=== PATIENT | female | born 1985 | race American Indian/Alaskan Native ===

== ENCOUNTER 2016-09-28 03:08 | Emergency (ER) | payer OTHER ==
[2016-09-28 04:20] LABS: Hematocrit 40.8 % (30.3-42.9); Mean Corpuscular HGB Conc 32 % (30-34); Mean Corpuscular Hemoglobin 28 pg (28-32); Mean Corpuscular Volume 89 fl (79-97); Platelet Count 196 K/mm3 (140-440); Red Blood Count 4.59 M/mm3 (3.65-5.03); Red Cell Distribution Width 13.5 % (13.2-15.2)
[2016-09-28 04:35] LABS: Anion Gap 18 mmol/L; BUN/Creatinine Ratio 11.25; Blood Urea Nitrogen 9 mg/dL (7-17); Calcium 8.9 mg/dL (8.4-10.2); Carbon Dioxide 21 mmol/L (22-30); Chloride 99.7 mmol/L (98-107); Glucose 88 mg/dL (65-100); Potassium 3.6 mmol/L (3.6-5.0); Sodium 135 mmol/L (137-145)
--- NOTE | 2016-09-28 04:50 | Emergency Department Report ---
- General Chief Complaint: Upper Respiratory Infection Stated Complaint: CONGESTED,DIZZY,VOMITING,FEVER,CP Time Seen by Provider: 09/28/16 04:26 Source: patient Mode of arrival: Ambulatory Limitations: No Limitations - History of Present Illness Initial Comments: 30 y/o female present to the Emergency complains of cough cold congestion for last 2 days. Patient said she had a relative visited [place] with similar complaints. Denies any abdominal pain. c/o mild nausea with cough. She has been taking [id number] Robitussin with minimal help. MD Complaint: cough, rhinorrhea, nasal congestion -: Gradual (2) Severity: moderate Severity scale (0 -10): 2 Quality: dull Consistency: constant Improves With: nothing Context: sick contacts Associated Symptoms: cough, nausea Treatments Prior to Arrival: "cold medicine" - Related Data Previous Rx's Medication Instructions Recorded Last Taken Type Acetaminophen/Codeine [Tylenol #3] 1 tab PO Q6H PRN #12 tab 06/24/15 Unknown Rx Azithromycin [Zithromax] 250 mg PO QDAY #4 tablet 06/24/15 Unknown Rx Promethazine Dm [Phenergan Dm 5 ml PO Q6H PRN #120 ml 06/24/15 Unknown Rx 6.25/15 mg 5 ml] Azithromycin [Zithromax Z-VILMA] 0 mg PO DAILY #1 pack 09/28/16 Unknown Rx Oseltamivir [Tamiflu] 75 mg PO BID #10 cap 09/28/16 Unknown Rx predniSONE [Deltasone] 40 mg PO QDAY #10 tab 09/28/16 Unknown Rx Allergies Allergy/AdvReac Type Severity Reaction Status Date / Time No Known Allergies Allergy Unverified 06/23/15 22:06 ED Review of Systems ROS: Stated complaint: CONGESTED,DIZZY,VOMITING,FEVER,CP Other details as noted in HPI Comment: All other systems reviewed and negative Constitutional: denies: chills, fever Eyes: denies: eye pain, eye discharge, vision change ENT: congestion. denies: ear pain, throat pain Respiratory: see HPI, cough. denies: shortness of breath, wheezing Cardiovascular: denies: chest pain, palpitations Endocrine: no symptoms reported Gastrointestinal: denies: abdominal pain, nausea, diarrhea Genitourinary: denies: urgency, dysuria, discharge Musculoskeletal: denies: back pain, joint swelling, arthralgia Skin: denies: rash, lesions Neurological: denies: headache, weakness, paresthesias Psychiatric: denies: anxiety, depression Hematological/Lymphatic: denies: easy bleeding, easy bruising ED Past Medical Hx - Past Medical History Previous Medical History?: Yes Hx Asthma: Yes - Surgical History Past Surgical History?: No - Social History Smoking Status: Current Every Day Smoker Substance Use Type: None - Medications Home Medications: Home Medications Medication Instructions Recorded Confirmed Last Taken Type Acetaminophen/Codeine [Tylenol #3] 1 tab PO Q6H PRN #12 tab 06/24/15 Unknown Rx Azithromycin [Zithromax] 250 mg PO QDAY #4 tablet 06/24/15 Unknown Rx Promethazine Dm [Phenergan Dm 5 ml PO Q6H PRN #120 ml 06/24/15 Unknown Rx 6.25/15 mg 5 ml] Azithromycin [Zithromax Z-VILMA] 0 mg PO DAILY #1 pack 09/28/16 Unknown Rx Oseltamivir [Tamiflu] 75 mg PO BID #10 cap 09/28/16 Unknown Rx predniSONE [Deltasone] 40 mg PO QDAY #10 tab 09/28/16 Unknown Rx ED Physical Exam - General Limitations: No Limitations General appearance: alert, in no apparent distress - Head Head exam: Present: atraumatic, normocephalic, other (mild bilateral frontal sinus tenderness) - Eye Eye exam: Present: normal appearance - ENT ENT exam: Present: mucous membranes moist, other (mild pharyngeal erythema) - Neck Neck exam: Present: normal inspection - Respiratory Respiratory exam: Present: normal lung sounds bilaterally. Absent: respiratory distress - Cardiovascular Cardiovascular Exam: Present: regular rate, normal rhythm. Absent: systolic murmur, diastolic murmur, rubs, gallop - GI/Abdominal GI/Abdominal exam: Present: soft, normal bowel sounds - Extremities Exam Extremities exam: Present: normal inspection - Back Exam Back exam: Present: normal inspection - Neurological Exam Neurological exam: Present: alert, oriented X3 - Psychiatric Psychiatric exam: Present: normal affect, normal mood - Skin Skin exam: Present: warm, dry, intact, normal color. Absent: rash ED Course Vital Signs 09/28/16 03:32 Temperature 99 F Pulse Rate 107 H Respiratory 18 Rate Blood Pressure 109/70 O2 Sat by Pulse 99 Oximetry - Reevaluation(s) Reevaluation #1: Patient was reassessed after she got shot of Toradol in the emergency room. Patient had improvement in her sinus pain. Vital signs stable 09/28/16 05:53 ED Medical Decision Making - Lab Data Result diagrams: 09/28/16 04:02 09/28/16 04:02 Critical care attestation.: If time is entered above; I have spent that time in minutes in the direct care of this critically ill patient, excluding procedure time. ED Disposition Clinical Impression: Acute bronchitis with bronchospasm, Viral upper respiratory illness Acute frontal sinusitis Qualifiers: Recurrence: non-recurrent Qualified Code(s): J01.10 - Acute frontal sinusitis, unspecified Disposition: DISCHARGED TO HOME OR SELFCARE Is pt being admited?: No Does the pt Need Aspirin: No Condition: Good Instructions: Sinusitis (ED), Acute Bronchitis (ED), Viral Syndrome (ED) Prescriptions: Azithromycin [Zithromax Z-VILMA] 0 mg PO DAILY #1 pack Oseltamivir [Tamiflu] 75 mg PO BID #10 cap predniSONE [Deltasone] 40 mg PO QDAY #10 tab Referrals: PRIMARY CARE,MD [Primary Care Provider] - 3-5 Days Forms: Work/School Release Form(ED)
[2016-09-28] MEDS ORDERED: TORADOL ONE (05:29)
[2016-09-28] MEDS ORDERED: TORADOL IM ONE (05:32)
[2016-09-28 06:18] LABS: Anisocytosis 1+; Blastocytes % (Manual) 0 %; Diff Status Complete; Hypochromasia Rare
[2016-09-28 06:45] VITALS: BP 102/70
--- NOTE | 2016-09-28 07:25 | XRay Report ---
CHEST 2 VIEWS INDICATION: Shortness of breath. COMPARISON: 12/25/2010. FINDINGS: PA and lateral chest radiographs again demonstrate normal cardiomediastinal silhouette and clear, well-expanded lungs. Normal bones. CONCLUSION: No acute disease in the chest. Thank you for the opportunity to participate in this patient's care.
== END 2016-09-28 06:00 | disposition home or self-care (01) ==
LOC: ED 03:08
DX: J06.9 Acute upper respiratory infection, unspecified (principal); J20.9 Acute bronchitis, unspecified; J01.10 Acute frontal sinusitis, unspecified; J45.909 Unspecified asthma, uncomplicated; F17.200 Nicotine dependence, unspecified, uncomplicated
CPT/HCPCS: 36415; 71020; 80048; 85007; 85025; 96372; 99284; J1885